=== PATIENT | female | born 1970 | race Caucasian/White ===

== ENCOUNTER 2021-01-29 22:56 | Emergency (ER) | payer BC, MEDICAID ==
--- NOTE | 2021-01-29 23:26 | EDM.PDOC ---
ED HPI GENERAL MEDICAL PROBLEM - General Chief Complaint: Lower Extremity Injury/Pain Stated Complaint: INJURED ANKLE AND WRIST DUE TO FALL Time Seen by Provider: 01/29/21 23:21 Source of Information: Reports: Patient History Limitations: Reports: No Limitations - History of Present Illness INITIAL COMMENTS - FREE TEXT/NARRATIVE: Sandee is a 50-year-old female presenting to the ED for evaluation of injury to her left foot and ankle. The patient was at the [facility] and was walking towards her vehicle after watching the [employer] competition. She was wearing flip-flops walking on loose soil when she stepped into a hole causing her foot to invert and causing her to fall onto her knee and outstretched left hand. The patient then experienced pain and swelling over the lateral foot and ankle. She has 7 out of 10 pain with movement and 5 out of 10 pain at rest. He denies any distal numbness or tingling. She was trying to prevent her from falling who just had a knee replacement 10 days ago. The patient was able to ambulate on the foot, however, was quite painful. She denies any significant deformity, however, it is quite swollen over the lateral malleolus. She describes the pain going down into the base of the fifth tarsal. She did sustain an abrasion to the left knee and has some mild pain in the left palm but denies any significant pain or injury to the wrist. Left Ankle Pain Score (Numeric/FACES): 3 - Related Data Allergies Allergy/AdvReac Type Severity Reaction Status Date / Time morphine Allergy Airway Verified 01/29/21 23:21 Tightness Home Meds: Home Meds Baclofen 10 mg PO TID 01/29/21 [History] Cyanocobalamin (Vitamin B12) [Vitamin B12] 1,000 mcg IJ WEEKLY 01/29/21 [History] Sertraline [Zoloft] 100 mg PO DAILY 01/29/21 [History] Spironolactone [Aldactone] 25 mg PO DAILY 01/29/21 [History] Topiramate [Topamax] 250 mg PO ASDIRECTED 01/29/21 [History] Varenicline Tartrate [Chantix] 1 mg PO BID 01/29/21 [History] estradioL [Estradiol] 0.5 mg PO DAILY 01/29/21 [History] traZODone 50 mg PO BEDTIME 01/29/21 [History] Review of Systems - Review of Systems Review Of Systems: See Below Constitutional: Reports: No Symptoms Musculoskeletal: Reports: Foot Pain (Left lateral foot pain), Joint Pain (Left lateral ankle and foot), Joint Swelling (Left lateral ankle and foot) Skin: Reports: Wound (Abrasion to the left knee) Neurological: Reports: No Symptoms Psychiatric: Reports: No Symptoms ED EXAM, GENERAL - Physical Exam Exam: See Below Exam Limited By: No Limitations General Appearance: Alert, Mild Distress Throat/Mouth: Normal Inspection, Normal Lips, Normal Oropharynx, Normal Voice, No Airway Compromise Head: Atraumatic, Normocephalic Neck: Normal Inspection, Supple Extremities: Normal Capillary Refill, Joint Swelling (Swelling and significant tenderness over the lateral malleolus and lateral foot on the left. Increased pain with flexion, extension, inversion of the ankle. Increased pain with palpation at the base of the fifth metatarsal.), Limited Range of Motion (Decreased flexion, extension, and inversion of the left ankle) Neurological: Alert, Oriented, Normal Cognition, No Motor/Sensory Deficits Psychiatric: Normal Affect, Normal Mood Skin Exam: Warm, Dry, Intact, Other (Abrasion on the left knee) Course - Vital Signs Last Recorded V/S: Last Vital Signs Temp 36.0 C L 01/29/21 23:29 Pulse 82 01/29/21 23:29 Resp 16 01/29/21 23:29 BP 98/76 01/29/21 23:29 Pulse Ox 100 01/29/21 23:29 - Orders/Labs/Meds Orders: Active Orders 24 hr Category Date Time Status Ankle Min 3V Lt [CR] Stat Exams 01/29/21 23:15 Taken Foot Comp Min 3V Lt [CR] Stat Exams 01/29/21 23:15 Taken Meds: Medications Discontinued Medications Generic Name Dose Route Start Last Admin Trade Name Freq PRN Reason Stop Dose Admin Ibuprofen 600 mg 01/30/21 00:03 Ibuprofen 600 Mg Tab PO 01/30/21 00:04 ONETIME ONE - Radiology Interpretation Free Text/Narrative:: Reviewed the x-ray of the left foot showing no acute abnormalities. The fifth metatarsal is intact. The tarsal bones also appear to be normal. There is a small ossicle that is noted behind the talus without an obvious donor site. This is well rounded and probably chronic and could be an accessory ossicle. There is mild soft tissue swelling over the lateral malleolus. I reviewed the three-view x-ray of the left ankle demonstrating a normal tibia and fibula, mortise, talus and calcaneus. There is no obvious deformity or abnormality to suggest a fracture or dislocation. There is a small ossicle noted behind the talus that is well-rounded and probably is an accessory ossicle. - Re-Assessments/Exams Free Text/Narrative Re-Assessment/Exam: 01/30/21 00:06 x-rays of the foot and ankle failed to demonstrate any acute osseous abnormalities. The injury is consistent with an inversion sprain causing damage to the anterior talofibular ligament. I discussed the management of this including the use of a walking boot. The patient was offered crutches but declined. I have instructed her to ice, elevate, and apply compression to the left ankle to help reduce pain and swelling. She will need to wear the walking boot when up and ambulating around. I encourage her to take ibuprofen 400 to 600 mg every 6 hours for pain control which also will help reduce inflam mation. You may ambulate as tolerated but when not up and walking around she should elevate the ankle to the level of the heart to help reduce the swelling. Occasions return to the ED were discussed. Anticipated recovery time for this is 7 to 10 days. All questions were answered prior to discharge. Departure - Departure Time of Disposition: 00:07 Disposition: Home, Self-Care 01 Clinical Impression: Abrasion, left knee, initial encounter Inversion sprain of left ankle Qualifiers: Encounter type: initial encounter Qualified Code(s): S93.402A - Sprain of unspecified ligament of left ankle, initial encounter - Discharge Information Instructions: Ankle Sprain With Phase I Rehab-SportsMed, Abrasion, [id number] Referrals: Renetta Baugh MD [Primary Care Provider] - Forms: ED Department Discharge Care Plan Goals: I would encourage you to use the walking boot when up and ambulating. This will provide support to the ankle to prevent further injury. When not up and ambulating, please elevate the ankle above the level of the heart to reduce pain and swelling. You may take ibuprofen 400 to 600 mg every 6 hours as needed for pain. Please ice the ankle 15 to 20 minutes every couple hours that you are awake. I anticipate that this will take 7 to 10 days to recover. I have included in your instructions phase 1 recovery exercises follow-up with your primary care provider if not improving. Return to the ED should you develop any sudden worsening in pain, new onset numbness or tingling, or any cyanosis in the nailbeds. Sepsis Event Note (ED) - Focused Exam Vital Signs: Vital Signs Temp Pulse Resp BP Pulse Ox 01/29/21 23:29 36.0 C L 82 16 98/76 100 - Problem List & Annotations (1) Abrasion, left knee, initial encounter SNOMED Code(s): 95949198971888174 Code(s): S80.212A - ABRASION, LEFT KNEE, INITIAL ENCOUNTER Status: Acute Priority: Medium Current Visit: Yes (2) Inversion sprain of left ankle SNOMED Code(s): 01762377 Code(s): S93.402A - SPRAIN OF UNSPECIFIED LIGAMENT OF LEFT ANKLE, INIT ENCNTR Status: Acute Priority: Medium Current Visit: Yes Qualifiers: Encounter type: initial encounter Qualified Code(s): S93.402A - Sprain of unspecified ligament of left ankle, initial encounter - Problem List Review Problem List Initiated/Reviewed/Updated: Yes - My Orders Last 24 Hours: My Active Orders 01/29/21 23:15 Ankle Min 3V Lt [CR] Stat Foot Comp Min 3V Lt [CR] Stat - Assessment/Plan Last 24 Hours: My Active Orders 01/29/21 23:15 Ankle Min 3V Lt [CR] Stat Foot Comp Min 3V Lt [CR] Stat
[2021-01-30] MEDS ORDERED: Ibuprofen 600 MG Tab PO ONE (00:03)
--- NOTE | 2021-02-01 09:35 | CR ---
Foot Comp Min 3V Lt CLINICAL HISTORY: Pain and swelling FINDINGS: There is no acute fracture or dislocation within the foot. No destructive changes are present. There is a small calcaneal spur. IMPRESSION: No acute bony process.
--- NOTE | 2021-02-01 09:37 | CR ---
Ankle Min 3V Lt CLINICAL HISTORY: Pain and swelling FINDINGS: The soft tissues are swollen. No acute fracture or dislocation is noted. Ankle mortise is intact. There is a prominent os trigonum. There is a small calcaneal spur. There is some ill-definition of the Achilles tendon Impression: No fracture or dislocation Ill-definition of the Achilles tendon. This may be technical combined with soft tissue swelling. Clinical correlation is necessary
== END 2021-01-30 00:22 | disposition home or self-care (01) ==
LOC: JP.ED 22:56
DX: S93.402A Sprain of unspecified ligament of left ankle, initial encounter (principal); Z88.5 Allergy status to narcotic agent; X50.1XXA Overexertion from prolonged static or awkward postures, initial encounter
CPT/HCPCS: 73610; 73630; 99283; A9270